=== PATIENT | male | born 1960 | race Caucasian/White ===

== ENCOUNTER 2019-09-22 10:14 | Inpatient (IN) ==
[2019-09-22] MEDS ORDERED: SODIUM CHLORIDE 0.9% 500 ML IV SCH (10:45)
--- NOTE | 2019-09-22 11:01 | XRay Report ---
XR chest 1V portable HISTORY: 59 years-old Male Chest Pain . Acute atypical chest pain COMPARISON: CT abdomen and pelvis 12/31/2018 TECHNIQUE: Portable AP view of the chest FINDINGS: Cardiac mediastinal and hilar silhouettes are within normal limits. There is no pneumothorax, pleural effusion, focal airspace consolidation or overt pulmonary edema. Ill-defined 3 mm radiodensity inter posed between the anterolateral aspects of the left second and third ribs may reflect a calcified gra nuloma. Degenerative changes of the shoulders and spine. IMPRESSION: No acute process. ACT 112: Negative or not required by law. The above report was generated using voice recognition software. It may contain grammatical, syntax o r spelling errors. Electronically signed by: Roger Coello M.D. 09/22/2019 11:00 AM
--- NOTE | 2019-09-22 11:35 | CT Scan Report ---
HEAD CT NONCONTRAST CT DOSE: 788.63 mGycm HISTORY: fall TECHNIQUE: Multiaxial CT images of the head were performed without the use of intravenous contrast. A utomated exposure control was utilized for this study. A dose lowering technique was utilized adheri ng to the principles of ALARA. Comparison: None. Findings: Hypoplastic and partially opacified right maxillary sinus. The mastoid air cells are clear. The calvarium and skull base are intact. The ventricles and sulci are within normal limits. There is no mass, hematoma, midline shift, or acute infarct. Impression: No acute intracranial abnormality. ACT 112: Negative or not required by law. Electronically signed by: Darnell Hensley M.D. 09/22/2019 11:38 AM
[2019-09-22 12:10] LABS: Basophils # (auto) 0.01 K/uL (0-0.2); Basophils % (auto) 0.1 %; Hematocrit (blood only) 43.4 % (42-52); Hemoglobin 14.8 g/dL (14.0-18.0); Immature Granulocytes # (auto) 0.04 K/uL (0.00-0.02); Immature Granulocytes % (auto) 0.3 %; Lymphocytes # (auto) 1.39 K/uL (1.2-3.4); Lymphocytes % (auto) 8.8 %; Mean Corpuscular Hgb Conc 34.1 g/dL (32-36); Mean Corpuscular Volume 93.7 fL (80-100); Monocytes # (auto) 0.65 K/uL (0.11-0.59); Monocytes % (auto) 4.1 %; Neutrophils # (auto) 13.71 K/uL (1.4-6.5); Neutrophils % (auto) 86.7 %; Platelet Count 249 K/uL (130-400); RDW Coefficient of Variation 14.2 % (11.5-14.5); RDW Standard Deviation 48.6 fL (36.4-46.3); Red Blood Count 4.63 M/uL (4.7-6.1)
[2019-09-22 12:20] LABS: Prothrombin Time 10.5 Seconds (9.0-12.0)
[2019-09-22 12:28] LABS: Alanine Aminotransferase 19 U/L (12-78); Albumin Level 4.3 gm/dl (3.4-5.0); Aspartate Aminotransferase 9 U/L (15-37); BUN Creatinine Ratio 13.5 (10-20); Blood Urea Nitrogen 39 mg/dl (7-18); Calcium 9.5 mg/dl (8.5-10.1); Carbon Dioxide 26 mmol/L (21-32); Chloride 104 mmol/L (98-107); Creatinine Clr Calc Pharmacy 26.9 ml/min; Est GFR (African American) 26.7; Glucose 169 mg/dl (70-99); Lipase 45 U/L (73-393); Potassium 3.7 mmol/L (3.5-5.1); Sodium 139 mmol/L (136-145)
[2019-09-22 12:33] LABS: Albumin Globulin Ratio 1.3 (0.9-2); Alkaline Phosphatase 88 U/L (45-117); Globulin 3.4 gm/dl (2.5-4.0); Total Protein 7.7 gm/dl (6.4-8.2); Troponin I < 0.015 ng/ml (0-0.045)
[2019-09-22 12:51] LABS: D Dimer 840 ug/L FEU (0-500)
[2019-09-22] MEDS ORDERED: SODIUM CHLORIDE 0.9% 1000ML 1,000 ML IV ONE ×2 (13:01→17:54)
--- NOTE | 2019-09-22 14:11 | History & Physical Report ---
Date of Service September 22, 2019 Assessment & Plan (1) Syncope: Secondary to dehydration from vomiting ilness and being on lasix in addition to being given nitro which pushed his blood pressure over the edge to cause the syncopal event; however will also monitor on telemetry overnight for arrhythmias (2) Vomiting: Now appears to be resolved. Suspect viral gastroenteritis. Will observe overnight for recurrence. (3) PRASHANT (acute kidney injury): US KUB performed due to history of radiation to prostate and no plausible cause for dehydration given from hand over from ER. This was reassuringly normal without urinary retention. Given history now taken from patient I suspect his vomiting illness in conjunction with his anti-hypertensives and addition of nitro appear to have caused significant renal hypoperfusion. Will rehydrate with IV fluids, total 3.5L bolus given and repeat BMP to determine need for ongoing fluids. Baselin as per ER discussed with [facility] Cr 0.7 (4) Chest pain, unspecified: 15 minutes associated with vomiting and negative troponin on admission. Additional episode this morning with syncopal events. Will trend serial troponins but suspect this does not represent ACS. Suspect acid related to his vomiting causing the pain. (5) Hypertension: Suspect hypotensive episode caused syncope as above and will d/c all hypotensives at this time given continued hypotension. Stop amlodipine, furosemide and lisinopril. (6) Left anterior fascicular block (LAFB): Noted on EKG. No Bifascicular block to suggest need for cardio consult. (7) CAD (coronary artery disease): Remote history of stents without heart failure. Will monitor for signs of pulmonary edema given extent of fluid resuscitation. (8) DVT prophylaxis: SCDs (9) Discharge planning issues: Patient requests transfer back to [facility] as soon as possible as he is due to get out on Friday and will likely miss this if he stays in hospital beyond tomorrow. History of Present Illness Chief Complaint: Syncope Primary Care Provider: [facility] Calvin Ballard is a 59 year old male who presents to the ER from [facility] due to a syncopal event that occurred earlier today. He had an episode of chest pain (severity 3/10, no radiation, occurred at rest, lasted for around 15 minutes, center of chest), vomiting and nausea last night. Then prior to the syncopal episode today he felt dizzy and light headed for a few minutes before losing consciousness. He had a slight headache when he came back around but then since coming to the ER he has been symptom free. With regards to the chest pain he reports having an extensive workup at [facility] in May last year with a cardiac cath which as per the patient's recollection showed no coronary artery disease. Allergies Allergy/AdvReac Type Severity Reaction Status Date / Time ciprofloxacin [From Cipro] Allergy Verified 09/22/19 11:08 Home Medications Home Medications Medication Instructions Recorded Confirmed Type aspirin 81 mg tablet,delayed 81 mg PO DAILY 05/10/19 09/22/19 History release pravastatin 10 mg tablet 10 mg PO DAILY 05/10/19 09/22/19 History amlodipine 10 mg PO DAILY 09/22/19 09/22/19 History furosemide 20 mg PO DAILY 09/22/19 09/22/19 History lisinopril 30 mg PO DAILY 09/22/19 09/22/19 History Past Med/Surg History Medical History Asthma Back pain BPH loc w urin obs/LUTS Cerebral palsy Diverticulosis GERD (gastroesophageal reflux disease) Heart disease Hyperlipidemia Hypertension [place]at[place] Radiculopathy Type 2 diabetes mellitus Family History Other No significant family history Social History Preferred Language: [place] Communication Ability: Effective Manager Community Outreach Required: No Beliefs That Will Affect Care: None Current Living Situation: Other Feels Safe at Home: Yes Smoking Status: Never smoker Hx Alcohol Use: No Hx Substance Use: No Review of Systems Review of Systems: All systems reviewed & are unremarkable except as noted in HPI & below Physical Exam Constitutional: WD/WN, vitals as above ENMT: Ears: no external ear abnormality Nose: no external nose abnormality Mouth: no oropharynx abnormality frontal forehead bossing Neck: trachea midline Respiratory: normal respiratory effort, lungs clear to auscultation Cardiovascular: RRR, no murmur, no edema Gastrointestinal (Abdomen): normal bowel sounds, soft, nontender, no hepatosplenomegaly Musculoskeletal: no cyanosis or clubbing, extremities motor strength 5/5 Skin: no rashes, warm and dry Neurologic: moves all extremities and awake; no focal motor deficits and not confused Speech / Cognition: normal speech Motor/Sensory: no tremor, no pronator drift and no sensory deficit Cranial Nerves: PERRL, EOM intact bilaterally, normal facial strength, able to rotate head bilaterally, able to elevate shoulders bilaterally, no nystagmus and symmetric palate elevation Psychiatric: A+Ox3, euthymic affect Genitourinary: no CVA tenderness Lymphatic: no cervical or axillary lymphadenopathy Results & Data Vital Signs (Past 12 Hours) Vital Signs Temp Pulse Pulse Resp BP BP Pulse Ox 09/22/19 13:51 74 16 108/50 L 97 09/22/19 13:01 82 16 136/56 L 95 09/22/19 11:30 57 L 16 97/51 L 95 09/22/19 10:36 94 09/22/19 10:24 36.8 C 88 16 165/120 H 94 Diagnostic Findings ULTRASOUND KIDNEYS AND BLADDER IMPRESSION: Unremarkable sonographic assessment of the kidneys and bladder. HEAD CT NONCONTRAST Impression: No acute intracranial abnormality. XR chest 1V portable IMPRESSION: No acute process. ECG Indication: syncope Rate (beats per minute): 93 Rhythm: normal sinus Findings: + LAFB; no acute ischemic change Comparison ECG Date: no prior available Code Status & VTE Plan Code Status Full VTE Prophylaxis Plan VTE Prophylaxis will be ordered: Yes PG Care Time/CCT Total # of Minutes Spent Total Time Spent with Patient: Total time spent is greater than 50% in coordi nation of care (as documented) at patient's floor/unit and/or counseling patient: Coding Level of Care Code 82047 Initial Inpt Care Lvl 3 Diagnoses Syncope R55 Syncope type: unspecified Vomiting R11.2 Vomiting type: unspecified Vomiting Intractability: non-intractable Nausea presence: with nausea PRASHANT (acute kidney injury) N17.9 Chest pain, unspecified R07.9 Chest pain type: unspecified Hypertension I10 Hypertension type: essential hypertension Left anterior fascicular block (LAFB) I44.4 CAD (coronary artery disease) I25.10 Coronary Disease-Associated Artery/Lesion type: [place] artery [place] vs. transplanted heart: [place] heart Associated angina: without angina DVT prophylaxis Z29.9 Discharge planning issues Z02.9 (1) Syncope Syncope type: unspecified Qualified Code(s): R55 - Syncope and collapse (2) Chest pain, unspecified Chest pain type: unspecified Qualified Code(s): R07.9 - Chest pain, unspecified (3) Hypertension Hypertension type: essential hypertension Qualified Code(s): I10 - Essential (primary) hypertension (4) Vomiting Vomiting type: unspecified Vomiting Intractability: non-intractable Nausea presence: with nausea Qualified Code(s): R11.2 - Nausea with vomiting, unspecified (5) CAD (coronary artery disease) Coronary Disease-Associated Artery/Lesion type: [place] artery [place] vs. transplanted heart: [place] heart Associated angina: without angina Qualified Code(s): I25.10 - Atherosclerotic heart disease of [place] coronary artery without angina pectoris
--- NOTE | 2019-09-22 14:33 | Electrocardiogram Report ---
Test Reason : Blood Pressure : / mmHG Vent. Rate : 093 BPM Atrial Rate : 093 BPM P-R Int : 144 ms QRS Dur : 102 ms QT Int : 384 ms P-R-T Axes : 066 270 061 degrees QTc Int : 477 ms Poor data quality, interpretation may be adversely affected Normal sinus rhythm Left anterior fascicular block Inferior infarct , age undetermined Cannot rule out Anterior infarct , age undetermined Abnormal ECG No previous ECGs available Confirmed by Timi Yañez ([id number]) on 09/22/2019 2:33:32 PM Referred By: ER Confirmed By:Timi Yañez
--- NOTE | 2019-09-22 14:37 | Ultrasound Report ---
ULTRASOUND KIDNEYS AND BLADDER CLINICAL HISTORY: Acute renal insufficiency. COMPARISON STUDY: Abdominal CT dated 12/31/2018. TECHNIQUE: Real-time, grayscale, and color flow sonography of the kidneys and bladder is performed. I mages are reviewed in the transverse and longitudinal planes. FINDINGS: Kidneys: The kidneys are normal in size and echotexture. The right kidney measures 10.2 cm in length and the left kidney measures 11.3 cm in length. There is no hydronephrosis. No shadowing renal calcul i are identified. There is no sonographic evidence of contour deforming renal mass lesion. No perinep hric fluid is identified. Bladder: The prostate gland is enlarged and heterogeneous. The bladder is normal in appearance. Bilat eral ureteral jets were seen. IMPRESSION: Unremarkable sonographic assessment of the kidneys and bladder. ACT 112: Negative or not required by law. Electronically signed by: Daniel Cadena M.D. 09/22/2019 2:36 PM
[2019-09-22] MEDS ORDERED: LACTATED RINGER'S 1,000 ML IV ONE (15:06)
[2019-09-22] MEDS ORDERED: ACETAMINOPHEN 325 MG TAB PO PRN (16:28)
[2019-09-22] MEDS ORDERED: ONDANSETRON INJ 2 MG/ML 2 ML VIAL IV PRN (16:28)
--- NOTE | 2019-09-22 16:46 | Emergency Department Note ---
Entered by Sophia Thompson acting as a scribe for Agustín Jose M.D. History of Present Illness General Chief complaint: Chest Pain Time Seen by Provider: 09/22/19 10:19 Source: patient and RN notes reviewed History of Present Illness Onset (ago): hour(s) 4 Location: head Pain Consistency: + other (episode) Maximum Pain Intensity: 0 Quality: + other (syncope) Associated symptoms: + chest pain, + nausea/vomiting and + other (+drop of blood pressure; ) Treatments prior to arrival: other (4 aspirin; 1 nitro) The patient is a 59 year old male, with past medical history of BPH, GERD, cerebral palsy, and diabetes, who presents to the Emergency Room with complaints of an episode of syncope that occurred approximately 4 hours ago at [facility]. The RN reports the patient experienced chest pain and nausea last night. She states the patients cell roommate witnessed the patient pass out this morning and hit his head. She states the patient was given 4 aspirin at the jail and 1 nitro, and she states the patients blood pressure dropped following receiving this. The patient reports that last night he vomited once, and he states he has not vomited in years prior to that. He states he does not remember passing out this morning. He states he experienced a headache and di zziness following the syncope episode, but the patient denies experiencing any pain, headache, or dizziness currently. He admits that his blood pressure is known to fluctuate, and he admits to history of hypertension. The patient denies being a smoker. The patient reports he had an episode of high blood pressure in early May that required hospitalization. He states he received a cardiac workup that included a cardiac catheterization that all came back normal at that time. Home Medications Home Medications Medication Instructions Recorded Confirmed Type aspirin 81 mg tablet,delayed 81 mg PO DAILY 05/10/19 09/22/19 History release pravastatin 10 mg tablet 10 mg PO DAILY 05/10/19 09/22/19 History amlodipine 10 mg PO DAILY 09/22/19 09/22/19 History furosemide 20 mg PO DAILY 09/22/19 09/22/19 History lisinopril 30 mg PO DAILY 09/22/19 09/22/19 History Allergies Allergy/AdvReac Type Severity Reaction Status Date / Time ciprofloxacin [From Cipro] Allergy Verified 09/22/19 11:08 Past Med/Surg History Medical History Asthma Back pain BPH loc w urin obs/LUTS Cerebral palsy Diverticulosis GERD (gastroesophageal reflux disease) Heart disease Hyperlipidemia Hypertension [place] Radiculopathy Type 2 diabetes mellitus Family History Other No significant family history Social History Feels Safe at Home: Yes Smoking Status: Never smoker Review of Systems See HPI for pertinent positives & negatives. and A total of 10 systems reviewed and were otherwise negative Physical Exam Vital Signs Vital Signs - 24 hr 09/22/19 10:24 09/22/19 10:27 09/22/19 10:36 Temperature 36.8 C Temperature Source Oral Pulse Rate 88 71 Pulse Rate [Apical] Pulse Rate from SpO2 Sensor 70 Respiratory Rate 16 17 Blood Pressure 165/120 H 165/120 H Blood Pressure [Right Arm] Blood Pressure Mean 135 130 Blood Pressure Mean [Right Arm] Pulse Oximetry 94 93 94 Oxygen Delivery Method Room Air Room Air Sepsis Recent Fever Within 48 Hours No Sepsis Action Taken by Nursing No Action Required 09/22/19 10:37 09/22/19 10:45 09/22/19 11:00 Temperature Temperature Source Pulse Rate 67 73 67 Pulse Rate [Apical] Pulse Rate from SpO2 Sensor 67 74 67 Respiratory Rate 17 18 16 Blood Pressure Blood Pressure [Right Arm] Blood Pressure Mean Blood Pressure Mean [Right Arm] Pulse Oximetry 92 92 95 Oxygen Delivery Method Sepsis Recent Fever Within 48 Hours Sepsis Action Taken by Nursing 09/22/19 11:27 09/22/19 11:30 09/22/19 11:32 Temperature Temperature Source Pulse Rate 66 62 60 Pulse Rate [Apical] 57 L Pulse Rate from SpO2 Sensor Respiratory Rate 17 14 17 Blood Pressure 101/49 L Blood Pressure [Right Arm] 97/51 L Blood Pressure Mean 76 Blood Pressure Mean [Right Arm] 66 Pulse Oximetry 95 Oxygen Delivery Method Room Air Sepsis Recent Fever Within 48 Hours Sepsis Action Taken by Nursing 09/22/19 11:33 09/22/19 11:45 09/22/19 12:00 Temperature Temperature Source Pulse Rate 66 57 L 57 L Pulse Rate [Apical] Pulse Rate from SpO2 Sensor Respiratory Rate 15 17 18 Blood Pressure 97/51 L 120/56 L Blood Pressure [Right Arm] Blood Pressure Mean 67 75 Blood Pressure Mean [Right Arm] Pulse Oximetry Oxygen Delivery Method Sepsis Recent Fever Within 48 Hours Sepsis Action Taken by Nursing 09/22/19 12:01 09/22/19 12:15 09/22/19 12:30 Temperature Temperature Source Pulse Rate 58 L 58 L 62 Pulse Rate [Apical] Pulse Rate from SpO2 Sensor Respiratory Rate 16 17 19 Blood Pressure Blood Pressure [Right Arm] Blood Pressure Mean Blood Pressure Mean [Right Arm] Pulse Oximetry Oxygen Delivery Method Sepsis Recent Fever Within 48 Hours Sepsis Action Taken by Nursing 09/22/19 12:45 09/22/19 13:00 09/22/19 13:01 Temperature Temperature Source Pulse Rate 66 72 68 Pulse Rate [Apical] 82 Pulse Rate from SpO2 Sensor Respiratory Rate 19 17 18 Blood Pressure 136/56 L Blood Pressure [Right Arm] 136/56 L Blood Pressure Mean 80 Blood Pressure Mean [Right Arm] 82 Pulse Oximetry 95 Oxygen Delivery Method Room Air Sepsis Recent Fever Within 48 Hours Sepsis Action Taken by Nursing 09/22/19 13:47 09/22/19 13:48 09/22/19 13:51 Temperature Temperature Source Pulse Rate 68 64 Pulse Rate [Apical] 74 Pulse Rate from SpO2 Sensor 68 65 Respiratory Rate 19 15 16 Blood Pressure 108/50 L Blood Pressure [Right Arm] 108/50 L Blood Pressure Mean 57 Blood Pressure Mean [Right Arm] 69 Pulse Oximetry 98 98 97 Oxygen Delivery Method Room Air Sepsis Recent Fever Within 48 Hours Sepsis Action Taken by Nursing 09/22/19 14:00 09/22/19 14:01 Temperature Temperature Source Pulse Rate 75 70 Pulse Rate [Apical] Pulse Rate from SpO2 Sensor 76 71 Respiratory Rate 20 19 Blood Pressure 147/67 H Blood Pressure [Right Arm] Blood Pressure Mean 80 Blood Pressure Mean [Right Arm] Pulse Oximetry 97 97 Oxygen Delivery Method Sepsis Recent Fever Within 48 Hours Sepsis Action Taken by Nursing GENERAL: Awake, alert, well-appearing, in no distress. Patient is shackled with guards present. HENT:Atraumatic. EYES: Normal conjunctiva. Sclera non-icteric. NECK: Supple. No nuchal rigidity. RESPIRATORY: Clear to auscultation. No wheezes. Normal respiratory effort. CARDIAC: Normal rate. Normal rhythm. Extremities warm and well perfused. GI: Soft, non-distended. No tenderness to palpation. No rebound or guarding. RECTAL: Deferred. MUSCULOSKELETAL: Atraumatic. Chest examination reveals no tenderness. LOWER EXTREMITIES: Calves are equal size bilaterally and non-tender. No edema NEURO: Normal sensorium. No sensory or motor deficits noted. No facial droop. SKIN: Warm and dry. No rash or jaundice noted. Course Course 1025: Past medical records reviewed. The patient was evaluated in room B4B. A complete history and physical exam was performed. 1255: I discussed the patient's case with the [facility]. It was noted that the patient's creatinine has tripled in the past month. Hospitalization is being considered for the patient. 1324: I reviewed the patient's case with Dr. [facility]. Dr. Orlando will evaluate the patient for further management. Consultations Consultation #1: I discussed the patient's case with the [facility]. It was noted that the patient's creatinine has tripled in the past month. Hospitalization is being considered for the patient. Time: 12:55 Consultation #2: I reviewed the patient's case with Dr. [facility]. Dr. Orlando will evaluate the patient for further management. Time: 13:24 Administered Medications Discontinued Medications Sodium Chloride (Nss) 500 mls @ 999 mls/hr IV .Q31M WESLEY Stop: 09/22/19 11:15 Last Infusion: 09/22/19 11:56 Dose: 0 mls/hr Documented by: [id number] Admin: 09/22/19 11:30 Dose: 999 mls/hr Documented by: [id number] Sodium Chloride (Nss 1000ml) 1,000 mls @ 999 mls/hr IV .Q1H1M ONE Stop: 09/22/19 14:01 Last Infusion: 09/22/19 14:51 Dose: 0 mls/hr Documented by: [id number] Admin: 09/22/19 13:40 Dose: 999 mls/hr Documented by: [id number] Lactated Ringer's (Lr) 1,000 mls @ 999 mls/hr IV .Q1H1M ONE Stop: 09/22/19 16:06 Last Admin: 09/22/19 15:54 Dose: 999 mls/hr Documented by: [id number] Medical Decision Making Differential Diagnosis Differential diagnosis: Etiologies such as cardiac ischemia, aortic dissection, pulmonary embolism, pneumonia, pneumothorax, musculoskeletal, infections, pericarditis, myocarditis, esophageal rupture, gastrointestinal, as well as others were entertained. Medical Records Attestation: I reviewed the patient's medical records. Home Medications Current Medication List: was personally reviewed by me Laboratory Data Attestation: I reviewed the patient's lab results. Result diagrams: 09/22/19 11:59 09/22/19 11:59 Lab Results 09/22/19 09/22/19 09/22/19 Range/Units 11:59 11:59 11:59 WBC 15.80 H (4.8-10.8) K/uL RBC 4.63 L (4.7-6.1) M/uL Hgb 14.8 (14.0-18.0) g/dL Hct 43.4 (42-52) % MCV 93.7 (80-100) fL MCH 32.0 (25-34) pg MCHC 34.1 (32-36) g/dL RDW Std Deviation 48.6 H (36.4-46.3) fL RDW Coeff of [place] 14.2 (11.5-14.5) % Plt Count 249 (130-400) K/uL MPV 12.0 H (7.4-10.4) fL Immature Gran % (Auto) 0.3 % Neut % (Auto) 86.7 % Lymph % (Auto) 8.8 % [place] % (Auto) 4.1 % Eos % (Auto) 0.0 % Baso % (Auto) 0.1 % Immature Gran # (Auto) 0.04 H (0.00-0.02) K/uL Neut # (Auto) 13.71 H (1.4-6.5) K/uL Lymph # (Auto) 1.39 (1.2-3.4) K/uL [place] # (Auto) 0.65 H (0.11-0.59) K/uL Eos # (Auto) 0.00 (0-0.5) K/uL Baso # (Auto) 0.01 (0-0.2) K/uL PT 10.5 Cancelled (9.0-12.0) Seconds INR 1.0 Cancelled (0.9-1.1) D-Dimer 840 H* (0-500) ug/L FEU Sodium (136-145) mmol/L Potassium (3.5-5.1) mmol/L Chloride (98-107) mmol/L Carbon Dioxide (21-32) mmol/L Anion Gap (3-11) BUN (7-18) mg/dl Creatinine (0.6-1.4) mg/dl Est Cr Clr Drug Dosing ml/min Est GFR ( Amer) Est GFR (Non-Af Amer) BUN/Creatinine Ratio (10-20) Glucose (70-99) mg/dl Calcium (8.5-10.1) mg/dl Total Bilirubin (0.2-1) mg/dl AST (15-37) U/L ALT (12-78) U/L Alkaline Phosphatase (45-117) U/L Troponin I (0-0.045) ng/ml Total Protein (6.4-8.2) gm/dl Albumin (3.4-5.0) gm/dl Globulin (2.5-4.0) gm/dl Albumin/Globulin Ratio (0.9-2) Lipase (73-393) U/L 09/22/19 Range/Units 11:59 WBC (4.8-10.8) K/uL RBC (4.7-6.1) M/uL Hgb (14.0-18.0) g/dL Hct (42-52) % MCV (80-100) fL MCH (25-34) pg MCHC (32-36) g/dL RDW Std Deviation (36.4-46.3) fL RDW Coeff of [place] (11.5-14.5) % Plt Count (130-400) K/uL MPV (7.4-10.4) fL Immature Gran % (Auto) % Neut % (Auto) % Lymph % (Auto) % [place] % (Auto) % Eos % (Auto) % Baso % (Auto) % Immature Gran # (Auto) (0.00-0.02) K/uL Neut # (Auto) (1.4-6.5) K/uL Lymph # (Auto) (1.2-3.4) K/uL [place] # (Auto) (0.11-0.59) K/uL Eos # (Auto) (0-0.5) K/uL Baso # (Auto) (0-0.2) K/uL PT (9.0-12.0) Seconds INR (0.9-1.1) D-Dimer (0-500) ug/L FEU Sodium 139 (136-145) mmol/L Potassium 3.7 (3.5-5.1) mmol/L Chloride 104 (98-107) mmol/L Carbon Dioxide 26 (21-32) mmol/L Anion Gap 9.0 (3-11) BUN 39 H (7-18) mg/dl Creatinine 2.86 H (0.6-1.4) mg/dl Est Cr Clr Drug Dosing 26.9 ml/min Est GFR ( Amer) 26.7 Est GFR (Non-Af Amer) 23.0 BUN/Creatinine Ratio 13.5 (10-20) Glucose 169 H (70-99) mg/dl Calcium 9.5 (8.5-10.1) mg/dl Total Bilirubin 1.0 (0.2-1) mg/dl AST 9 L (15-37) U/L ALT 19 (12-78) U/L Alkaline Phosphatase 88 (45-117) U/L Troponin I < 0.015 (0-0.045) ng/ml Total Protein 7.7 (6.4-8.2) gm/dl Albumin 4.3 (3.4-5.0) gm/dl Globulin 3.4 (2.5-4.0) gm/dl Albumin/Globulin Ratio 1.3 (0.9-2) Lipase 45 L (73-393) U/L Imaging Data Radiologist's Impression: Radiology results as stated below per my review and the radiologist's interpretation: XR chest 1V portable HISTORY: 59 years-old Male Chest Pain . Acute atypical chest pain COMPARISON: CT abdomen and pelvis 12/31/2018 TECHNIQUE: Portable AP view of the chest FINDINGS: Cardiac mediastinal and hilar silhouettes are within normal limits. There is no pneumothorax, pleural effusion, focal airspace consolidation or overt pulmonary edema. Ill-defined 3 mm radiodensity interposed between the anterolateral aspects of the left second and third ribs may reflect a calcified granuloma. Degenerative changes of the shoulders and spine. IMPRESSION: No acute process. ACT 112: Negative or not required by law. The above report was generated using voice recognition software. It may contain grammatical, syntax or spelling errors. Electronically signed by: Roger Coello M.D. 09/22/2019 11:[address]AST CT DOSE: 788.63 mGycm HISTORY: fall TECHNIQUE: Multiaxial CT images of the head were performed without the use of intravenous contrast. Automated exposure control was utilized for this study. A dose lowering technique was utilized adhering to the principles of ALARA. Comparison: None. Findings: Hypoplastic and partially opacified right maxillary sinus. The mastoid air cells are clear. The calvarium and skull base are intact. The ventricles and sulci are within normal limits. There is no mass, hematoma, midline shift, or acute infarct. Impression: No acute intracranial abnormality. ACT 112: Negative or not required by law. Electronically signed by: Darnell Hensley M.D. 09/22/2019 11:38 AM ULTRASOUND KIDNEYS AND BLADDER CLINICAL HISTORY: Acute renal insufficiency. COMPARISON STUDY: Abdominal CT dated 12/31/2018. TECHNIQUE: Real-time, grayscale, and color flow sonography of the kidneys and bladder is performed. Images are reviewed in the transverse and longitudinal planes. FINDINGS: Kidneys: The kidneys are normal in size and echotexture. The right kidney linda sures 10.2 cm in length and the left kidney measures 11.3 cm in length. There is no hydronephrosis. No shadowing renal calculi are identified. There is no sonographic evidence of contour deforming renal mass lesion. No perinephric fluid is identified. Bladder: The prostate gland is enlarged and heterogeneous. The bladder is normal in appearance. Bilateral ureteral jets were seen. IMPRESSION: Unremarkable sonographic assessment of the kidneys and bladder. ACT 112: Negative or not required by law. Electronically signed by: Daniel Cadena M.D. 09/22/2019 2:36 PM ECG Data Attestation: I personally reviewed and interpreted this ECG as follows: Indication: + chest pain and + syncope Rate (beats per minute): 93 Rhythm: + normal sinus ECG Intervals/blocks: + Left anterior fascicular block ECG ST segments: no ST depression and no ST elevation ECG Findings: no PVCs Blood Pressure Blood Pressure Findings: Elevated blood pressure Blood Pressure Disposition: further management by hospitalist Additional Comments: Blood pressure labile high then low through out stay. Head Trauma GCS Score: 15 MDM Narrative Patient is a 59-year-old prisoner presenting via ambulance today with report of chest pain. Patient does have a history of prostate cancer, hypertension, GERD, and cerebral palsy. Reports that he fell a bit off last night and this morning felt dizzy with some chest, pain. Patient states that he fell to the ground and somewhat reported loss of consciousness. Reported chest pain prior to arrival and was [facility] in [facility] and then for EMS aspirin and nitroglycerin. Blood pressure is elevated here. Patient states he had prior cardiac work-up in May at [facility] where he had a negative catheterization of his heart per his report. Patient states he is not had pain earlier but that is improved now. No focal neurological deficits. Not on other blood thinners. Pain again is resolved at this time. Patient states he is labile blood pressure. No significant leg swelling. EKG, troponin, basic labs, d-dimer sent to exclude PE. Doubt dissection. Given some fluid here. Do not believe any cervical spine x-rays or imaging but a CT head is completed given the syncopal episodes and the head injury. D-dimer was elevated however new significant acute kidney injury precludes additional investigation here. He is stable and do not see need for empiric anticoagulation at this time. Discussed with the [facility] who states creatinine is normally 0.7 from 08/29/19. Is on several renally active medications such as Lasix and lisinopril. Given additional IV fluids. Renal US without signs of hydro or enlarged bladder. Discussed with the patient and the admitting hospitalist for further evaluation here. Urinalysis pending. Impression & Plan Syncope, Chest pain, unspecified, PRASHANT (acute kidney injury) Discharge Plan Visit Data *Final* Discharge Date/Time: 09/22/19 15:39 Chief Complaint: Chest Pain ED Provider: Agustín Jose Discharge Problem: Syncope, Chest pain, unspecified, PRASHANT (acute kidney injury) Patient Disposition: Admitted As Inpatient Discharge Instructions Interventions: ED Discharge Assessment Last Done: 09/22/19 15:39 Discharge Problem: Syncope Qualifiers: Syncope type: unspecified Qualified Code(s): R55 - Syncope and collapse Chest pain, unspecified Qualifiers: Chest pain type: unspecified Qualified Code(s): R07.9 - Chest pain, unspecified The scribe's documentation has been prepared under my direction and personally reviewed by me in its entirety. I confirm that the note above accurately reflects all work, treatment, procedures, and medical decision making performed by me.
[2019-09-22 16:55] LABS: Appearance Urine Cloudy (Clear); Bacteria Urine Automated Negative (Negative); Bilirubin Urine Negative (Negative); Blood Urine Negative (Negative); Color Urine Yellow; Epithelial Cell Urine Auto 20-30 /lpf (0-5); Glucose Urine UA Negative (Negative); Ketones Urine Negative (Negative); Leukocyte Esterase Urine Negative (Negative); Nitrite Urine Negative (Negative); Protein Urine 1+ (Negative); Specific Gravity Urine 1.017 (1.000-1.030); Urobilinogen Urine Negative (Negative)
[2019-09-22 17:39] LABS: Calcium Oxalate Crystals Urine Present (None Prsent)
[2019-09-22 20:30] LABS: BUN Creatinine Ratio 17.5 (10-20); Blood Urea Nitrogen 27 mg/dl (7-18); Calcium 8.6 mg/dl (8.5-10.1); Carbon Dioxide 27 mmol/L (21-32); Chloride 110 mmol/L (98-107); Est GFR (African American) 55.1; Est GFR (Non-African American) 47.5; Glucose 117 mg/dl (70-99); Potassium 3.8 mmol/L (3.5-5.1); Sodium 141 mmol/L (136-145)
[2019-09-22] MEDS: D5W AND 1/2NSS + 20MEQ KCL 20 MEQ/1,000 ML BAG IV SCH (22:02)
[2019-09-23 03:04] LABS: Troponin I < 0.015 ng/ml (0-0.045)
[2019-09-23] MEDS: D5W AND 1/2NSS + 20MEQ KCL 20 MEQ/1,000 ML BAG IV SCH ×2 (04:44→11:27)
[2019-09-23 08:22] LABS: Basophils # (auto) 0.02 K/uL (0-0.2); Basophils % (auto) 0.2 %; Eosinophils # (auto) 0.08 K/uL (0-0.5); Eosinophils % (auto) 0.9 %; Hematocrit (blood only) 41.1 % (42-52); Hemoglobin 13.8 g/dL (14.0-18.0); Immature Granulocytes # (auto) 0.01 K/uL (0.00-0.02); Immature Granulocytes % (auto) 0.1 %; Lymphocytes # (auto) 1.42 K/uL (1.2-3.4); Lymphocytes % (auto) 16.4 %; Mean Corpuscular Hemoglobin 31.8 pg (25-34); Mean Corpuscular Hgb Conc 33.6 g/dL (32-36); Mean Corpuscular Volume 94.7 fL (80-100); Mean Platelet Volume 11.8 fL (7.4-10.4); Monocytes # (auto) 0.72 K/uL (0.11-0.59); Monocytes % (auto) 8.3 %; Neutrophils % (auto) 74.1 %; Platelet Count 205 K/uL (130-400); RDW Coefficient of Variation 14.4 % (11.5-14.5); RDW Standard Deviation 49.9 fL (36.4-46.3); Red Blood Count 4.34 M/uL (4.7-6.1); White Blood Count 8.65 K/uL (4.8-10.8)
[2019-09-23] MEDS ORDERED: ASPIRIN 81 MG ECTAB PO SCH (09:00)
[2019-09-23] MEDS ORDERED: PRAVASTATIN SOD 10 MG TAB PO SCH (09:00)
[2019-09-23 09:03] LABS: BUN Creatinine Ratio 18.5 (10-20); Blood Urea Nitrogen 17 mg/dl (7-18); Carbon Dioxide 27 mmol/L (21-32); Chloride 109 mmol/L (98-107); Creatinine Clr Calc Pharmacy 81.9 ml/min; Est GFR (African American) 102.4; Est GFR (Non-African American) 88.4; Glucose 115 mg/dl (70-99); Sodium 140 mmol/L (136-145); Troponin I < 0.015 ng/ml (0-0.045)
--- NOTE | 2019-09-23 15:44 | Discharge Summary ---
Date of Service September 23, 2019 Admission HPI Per Admitting Provider Calvin Ballard is a 59 year old male who presents to the ER from [facility] due to a syncopal event that occurred earlier today. He had an episode of chest pain (severity 3/10, no radiation, occurred at rest, lasted for around 15 minutes, center of chest), vomiting and nausea last night. Then prior to the syncopal episode today he felt dizzy and light headed for a few minutes before losing consciousness. He had a slight headache when he came back around but then since coming to the ER he has been symptom free. With regards to the chest pain he reports having an extensive workup at [facility] in May last year with a cardiac cath which as per the patient's recollection showed no coronary artery disease. Principal Diagnosis Syncope Discharge Exam Constitutional WD/WN, vitals as above Respiratory normal respiratory effort, lungs clear to auscultation Cardiovascular RRR, no murmur, no edema Gastrointestinal (Abdomen) Inspection/Auscultation: abdomen normal to inspection and normal bowel sounds; abdomen not distended Percussion/Palpation: abdomen soft; abdomen nontender Musculoskeletal no cyanosis or clubbing, extremities motor strength 5/5 Skin no rashes, warm and dry Neurologic moves all extremities and awake Psychiatric A+Ox3, euthymic affect Discharge Data Allergies Allergy/AdvReac Type Severity Reaction Status Date / Time ciprofloxacin [From Cipro] Allergy Verified 09/22/19 11:08 Consultations 09/22/19 13:12 ED Decision to Admit Stat 09/23/19 03:00 Consult Health Information Management Routine Ordered Studies 09/22/19 10:35 CT head/brain wo con Stat 09/22/19 13:26 US renal/blad retro comp Stat Hospital Course (1) Syncope: Secondary to dehydration from vomiting ilness and being on lasix in addition to being given nitro which dropped over the edge to cause the syncopal event;no events on monitor (2) Vomiting: Now appears to be resolved. Suspect viral gastroenteritis. (3) PRASHANT (acute kidney injury): Secondary to dehydration. Creat was 2.86 on admission and resolved with IVF US KUB performed due to history of radiation to prostate. This was reassuringly normal without urinary retention. Baseline as per ER discussed with [facility] Cr 0.7 (4) Chest pain, unspecified: 15 minutes associated with vomiting and negative troponin on admission. Troponins wnl x3. Suspect acid related to his vomiting causing the pain. Stress test in May at [facility] reviewed - no evidence of myocardial ischemia, normal EF D-dimer was elevated in ED but CTA was deferred due to kidney function. No dyspnea, tachycardia or fever to suggest PE. (5) Hypertension: Suspect hypotensive episode caused syncope as above and will d/c all hypotensives - bps now low normal - Hold amlodipine, furosemide and lisinopril until pressures improve a bit more (6) Left anterior fascicular block (LAFB): Noted on EKG. (7) CAD (coronary artery disease): Remote history of stents without heart failure. Will monitor for signs of pulmonary edema given extent of fluid resuscitation. (8) DVT prophylaxis: SCDs (9) Discharge planning issues: Total Time Total Time Spent Total Time Spent (In Minutes): greater than 30 minutes Discharge Plan Discharge Items [facility] Disposition[facility] Reason For Visit: SYNCOPE,CHEST PAIN Discharge Diagnosis: syncope, chest pain Activity: Resume your previous activity Non-emergency contact: Primary Care Provider Call non-emergency contact if: you have any medication questions Follow-up/Referrals: Carlos JURADO [Primary Care Provider] - Diet: Heart Healthy Addtl Attending Provider Instructions: (1) Syncope: Secondary to dehydration from vomiting illness and being on Lasix in addition to being given nitro which combined to drop blood pressure and produce syncopal event; No arrhythmias on monitor (2) Vomiting: Now appears to be resolved. Suspect viral gastroenteritis. Provided intravenous fluids (3) PRASHANT (acute kidney injury): Secondary to dehydration - Creatinine 2.86 on admission, now within normal limits at 0.9 US KUB performed due to history of radiation to prostate. This was reassuringly normal without urinary retention. Provided intravenous fluids (4) Chest pain, unspecified: Troponins negative x 3. No further chest pain. Recent stress test in May at [facility] reviewed which was normal. D-dimer was elevated however CT angiogram was held due to kidney function not allowing for dye administration. No shortness of breath, tachycardia or fever to cause suspicion of pulmonary embolism. No further chest pain/pressure so will defer further chest imaging. Reviewed May stress test which was normal. (5) Hypertension: Suspect hypotensive episode caused syncope as above. WOULD HOLD ANTIHYPERTENSIVES UNTIL BLOOD PRESSURE INCREASES A BIT MORE. Blood pressure was low normal all day to day. (6) Left anterior fascicular block (LAFB): Noted on EKG. (7) CAD (coronary artery disease): Remote history of stents without heart failure. Pending Studies at Discharge: No Stand-Alone Forms: Call Back Authorization, [facility] Skilled Items Patient informed of condition?: Yes Discharge Level of Care: Other Communicable Disease: No Discharge Prognosis: Stable Lines: None Urinary Catheter: No Medications and DC Order Prescriptions: Continued aspirin 81 mg tablet,delayed release (DR/EC) 81 mg PO DAILY RF: 0 pravastatin 10 mg tablet 10 mg PO DAILY RF: 0 amlodipine 10 mg Tablet 10 mg PO DAILY RF: 0 lisinopril 30 mg Tablet 30 mg PO DAILY RF: 0 furosemide 20 mg Tablet 20 mg PO DAILY RF: 0 Admission Data Admit Date/Time: 09/22/19 14:04 Attending Provider: Nando Conway Admit Provider: Graham Orlando Primary Care Provider: Carlos JURADO Other Providers: Nando Conway Coding Level of Care Code D/C Day Management >30 mins Diagnoses Syncope R55 Syncope type: unspecified Vomiting R11.2 Nausea presence: with nausea Vomiting Intractability: non-intractable Vomiting type: unspecified PRASHANT (acute kidney injury) N17.9 Chest pain, unspecified R07.9 Chest pain type: unspecified Hypertension I10 Hypertension type: essential hypertension Left anterior fascicular block (LAFB) I44.4 CAD (coronary artery disease) I25.10 Associated angina: without angina Coronary Disease-Associated Artery/Lesion type: [place] artery [place] vs. transplanted heart: [place] heart DVT prophylaxis Z29.9 Discharge planning issues Z02.9
== END 2019-09-23 18:08 | DRG 312 ==
LOC: ED 10:14 → 2W 14:04 → SUATTDRO 14:04 → 2W 15:39